=== PATIENT | male | born 1995 | race Caucasian/White ===

== ENCOUNTER 2024-10-02 09:06 | Emergency (ER) | payer OTHER, SELFPAY ==
--- NOTE | ~2024-10-02 | XR_ITS ---
Clinical Indication: Cough PA and lateral views of the chest: Comparison: None Findings: Possible nodular opacity peripheral right midlung, possibly calcified. Left lung clear. Car diomediastinal silhouette is within normal limits. Bones and soft tissues are unremarkable. Impression: Possible calcified right midlung nodule peripherally. Consider chest CT to further evaluate as indica jess. Reviewed, dictated and finalized at location . Impression: Possible calcified right midlung nodule peripherally. Consider chest CT to furt her evaluate as indicated.
--- OUTSIDE RECORDS SUMMARY | 2024-10-02 09:09 | XMS_ITS | Clinical Summary ---
Author Organization [facility] Address [address] [place] [address] Care Team Providers Care Underground Mining Section Foreman Name Role Phone Abilio Rosado MD Primary Care Provider [phone] Allergies No known active allergies Medications montelukast (SINGULAIR) 10 mg Oral tablet Take 1 Tab by mouth daily. 30 Tab 3 10/12/2012 Active Active Problems Patient Care Coordination No te Formatting of this note migh t be different from the original. Head Of Precision Targeting- Dr. Chrissie Camacho Office Problem Noted Date Diagnosed Date Adjustment reaction 10/12/2012 Encounters Date Type Department Care Team Description 09/09/2024 External Device Data ST[facility] ABSTRACTION Provider, Abstract 08/23/2024 External Device Data [facility] ABSTRACTION Provider, Abstract 08/02/2024 External Device Data [facility] ABSTRACTION Provider, Abstract 08/02/2024 External Device Data [facility] ABSTRACTION Provider, Abstract 08/02/2024 External Device Data [facility] ABSTRACTION Provider, Abstract 08/01/2024 1:25 PM CDT Ancillary Procedure [address] [place] [address] Ángel Jorgensen MD Left foot pain from Last 3 Months Family History Relation Name Status Comments Brother Alive Father Alive Mother Alive Social History Tobacco Use Types Packs/Day Years Used Date Smoking Tobacco: Never Smokeless Tobacco: Never Alcohol Use Standard Drinks/Week Comments No 0 (1 standard drink = 0.6 oz pur e alcohol) Sex and Gender Information Value Date Recorded Sex Assigned at Not on file Legal Sex Male 10:06 AM CDT Gender Identity Not on file Sexual Orientation Not on file Occupation Industry Job Start Date Job End Date Not on file Not on file Not on file Not on file Last Filed Vital Signs Vital Sign Reading Time Taken Comments Blood Pressure 112/76 11/22/2012 1:01 PM CDT Pulse 79 11/22/2012 1:01 PM CDT Temperature 36.7 C (98.1 F) 10/12/2012 1:28 PM CDT Respiratory Rate - - Oxygen Saturation 98% 11/22/2012 1:01 PM CDT Inhaled Oxygen Concentration - - Weight 80.8 kg (178 lb 1.6 oz) 11/22/2012 1:01 P M CDT Height 177.8 cm (5' 10) 11/22/2012 1:01 PM CDT Body Mass Index 25.55 11/22/2012 1:01 PM CDT Plan of Treatment Health Maintenance Due Date Last Done Comments HPV VACCINES (3 - Male 3-dos e series) 03/12/2013 11/09/2012, 09/09/2012 DTAP/TDAP/TD VACCINES (7 - T d or Tdap) 09/28/2016 09/28/2006, 07/31/1999, 06/15/1995, Additional history exists INFLUENZA VACCINE (#1) 2023 9, 01/13/2001, 02/01/1999 HEPATITIS B VACCINES Completed 1994, 1994, 1994 Procedures Procedure Name Priority Date/Time Associated Diagnosis Comments XR FOOT 3+ VW LEFT Routine 08/01/2024 1: 50 PM CDT Left foot pain from Last 3 Months Results * XR FOOT 3+ VW LEFT (08/01/2024 1:50 PM CDT) Anatomical Region Laterality Modality Ankle / Foot Computed Radiogr aphy 08/01/2024 1:51 PM CDT Impressions 08/01/2024 2:32 PM CDT IMPRESSION: Tiny somewhat buckled appearing defect along the lateral cortex of the mid shaft of the fifth proximal phalanx, age indeterminate. Please correlate with site of pain. This finding may very well be chronic. No additional osseous abnormalities. Narrative 08/01/2024 2:32 PM CDT Left foot HISTORY: Dropped a piece of workout equipment on his foot 3 views of the left foot demonstrate a tiny buckled appearance along the cortex laterally at the mid shaft of the fourth proximal phalanx, age indeterminate. Please correlate with site of pain. No additional osseous abnormalities are noted. Mineralization is normal. Procedure Note Shauna Noriega MD - 08/01/2024 Left foot HISTORY: Dropped a piece of workout equipment on his foot 3 views of the left foot demonstrate a tiny buckled appearance along the cortex laterally at the mid shaft of the fourth proximal phalanx, age indeterminate. Please correlate with site of pain. No additional osseous abnormalities are noted. Mineralization is normal. IMPRESSION: Tiny somewhat buckled appearing defect along the lateral cortex of the mid shaft of the fifth proximal phalanx, age indeterminate. Please correlate with site of pain. This finding may very well be chronic. No additional osseous abnormalities. us Ángel Jorgensen MD DIAGNOSTIC IMAGING ORDERABLES Fi nal Result from Last [address] [place] [address] [place] [address] BLUE ACCESS/TRUE BLUE PPO [facility] [employer] [place] [id number] Care Teams Underground Mining Section Foreman Relationship Specialty Start Date End Date Abilio Rosado MD PCP - General Internal Medicine 10/12/12
--- OUTSIDE RECORDS SUMMARY | 2024-10-02 09:14 | XMS_ITS | Encounter Summary ---
Author Organization [facility] Address [address] [place] [address] Phone Care Team Providers Care Money Market Clerk Name Role Phone Nacho Huerta MD Primary Care Provider + Encounter Details Date Type Department Care Team (Late st Contact Info) Description 05/16/2017 Orders Only [facility] ProviderKeshia MD [address] [place] [address] Social History Tobacco Use Types Packs/Day Years Used Date Smoking Tobacco: Never Smokeless Tobacco: Never Alcohol Use Standard Drinks/Week Comments Yes 0 (1 standard drink = 0.6 oz pur e alcohol) Sex and Gender Information Value Date Recorded Sex Assigned at Not on file Legal Sex Male 12:49 PM STAFF DEVELOPMENT EDUCATOR Gender Identity Not on file Sexual Orientation Not on file documented as of this encounter Plan of Treatment Not on file documented as of this encounter Procedures Procedure Name Priority Date/Time Associated Diagnosis Comments DISCHARGE LABORATORY CUMULATIVE REPORT 05/16/2017 12:00 AM STAFF DEVELOPMENT EDUCATOR documented in this encounter Results * DISCHARGE LABORATORY CUMULATIVE REPORT (05/16/2017 12:00 AM STAFF DEVELOPMENT EDUCATOR) Narrative 05/16/2017 12:00 AM STAFF DEVELOPMENT EDUCATOR Ordered by an unspecified provider. Historical Provider LAB BLOOD ORDERABLES Dominique l Result documented in this encounter Visit Diagnoses Not on filedocumented in this encounter Care Teams Money Market Clerk Relationship Specialty Start Date End Date Nacho Huerta MD [address] [address] PCP - General 04/22/16 documented as of this encounter
--- OUTSIDE RECORDS SUMMARY | 2024-10-02 09:14 | XMS_ITS | Clinical Summary ---
Author Organization [facility] [address] [place] [address] Care Team Providers Care Press Operator Helper Name Role Phone Nacho Huerta MD Primary Care Provider + Allergies No known active allergies Medications No known medications Active Problems Problem Noted Date Diagnosed Date Skin lesion 04/22/2016 Overview (07/25/2016): Skin lesion Follow-up status 04/22/2016 Overview (07/25/2016): Sex counselings Laryngismus 10/04/2012 Overview (07/23/2016): Spasm of vocal cords Medical examinations/reports status 06/24/2012 Overview (07/23/2016): Health care maintenance 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 (07/23/2016): 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 Overview (07/23/2016): Hyperhidrosis of axilla Irritable bowel syndrome 06/24/2012 Overview (07/25/2016): IBS (irritable bowel syndrome) Myopia 06/24/2012 Overview (07/25/2016): Myopia Immunizations Immunization Administration Dates Next Due DTP / HiB 06/15/1995 DTaP 07/31/1999 DTaP / HiB 1994,1994,1994 HPV, Quadrivalent 11/09/2012,09/09/2012 Hep B, Adolescent or Pediatric 1994,1994,1994 IPV 07/31/1999 Influenza, Trivalent, IM (MDV) 01/19/2009,2000,02/01/1999 MMR 07/31/1999,04/18/1995 Meningococcal Polysaccharide (Menomune) 11/16/19 11 OPV 1994,1994,1994 Tdap 09/28/2006 Varicella 04/18/1995 Surgical History Surgery Date Site/Laterality Comments OTHER SURGICAL HISTORY 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: Vag del SAH & nl head growth Medical History Medical History Date Comments Hx Other Medical 1993 6-7 microcephal y on US Hx Other Medical 1994 PET Family History Medical History Relation Name Comments Other Mother Strabismus; Other Other 1 1 Breast cancer Other 2 Family history of Cancer, breast; Other Other 3 1 Coronary artery disease Other 4 Fami ly history of Coronary artery disease; Other Other 5 1 Diabetes Other 6 Family history of Diabetes mellitus; Other Other 7 1 Other Other 8 No family histo ry of Sudden <50; Other Other 9 1 Relation Name Status Comments Mother Other 1 Other 2 Other 3 Other 4 Other 5 Other 6 Other 7 Other 8 Other 9 Social History Tobacco Use Types Packs/Day Years Used Date Smoking Tobacco: Never Smokeless Tobacco: Never Alcohol Use Standard Drinks/Week Comments Yes 0 (1 standard drink = 0.6 oz pur e alcohol) Sex and Gender Information Value Date Recorded Sex Assigned at Not on file Legal Sex Male 12:49 PM EMPLOYMENT ADJUDICATOR Gender Identity Not on file Sexual Orientation Not on file Obstetrics History Last Filed Vital Signs Vital Sign Reading Time Taken Comments Blood Pressure 122/84 05/16/2017 7:15 PM EMPLOYMENT ADJUDICATOR Pulse 87 05/16/2017 7:15 PM EMPLOYMENT ADJUDICATOR Temperature 36.9 C (98.5 F) 05/16/2017 7:15 PM EMPLOYMENT ADJUDICATOR Respiratory Rate 16 05/16/2017 7:15 PM EMPLOYMENT ADJUDICATOR Oxygen Saturation 98% 05/16/2017 7:15 PM EMPLOYMENT ADJUDICATOR Inhaled Oxygen Concentration - - Weight 89.8 kg (197 lb 14.4 oz) 05/16/2017 7:15 PM EMPLOYMENT ADJUDICATOR Height 180.3 cm (5' 11) 05/16/2017 7:15 PM EMPLOYMENT ADJUDICATOR Body Mass Index 27.6 05/16/2017 7:15 PM EMPLOYMENT ADJUDICATOR Plan of Treatment Not on file Insurance [employer] SIG [id number] [place] OPEN ACCESS [facility] CMR Care Teams Press Operator Helper Relationship Specialty Start Date End Date Nacho Huerta MD [address] [address] PCP - General 04/22/16
--- OUTSIDE RECORDS SUMMARY | 2024-10-02 09:14 | XMS_ITS | Referral Summary ---
Author Organization [facility] [address] Address [address] [place] [address] Care Team Providers Care Grid Trimmer Name Role Phone Nacho Huerta MD Primary [...] 11 OPV 1994,1994,1994 Tdap 09/28/2006 Varicella 04/18/1995 Social History Tobacco Use Types Packs/Day Years Used Date Smoking Tobacco: Never Smokeless Tobacco: Never Alcohol Use Standard Drinks/Week Comments Yes 0 (1 standard drink = 0.6 oz pur e alcohol) Sex and Gender Information Value Date Recorded Sex Assigned at Not on file Legal Sex Male 12:49 PM HARP ACTION ASSEMBLER Gender Identity Not on file Sexual Orientation Not on file Last Filed Vital Signs Vital Sign Reading Time Taken Comments Blood Pressure 122/84 05/16/2017 7:15 PM HARP ACTION ASSEMBLER Pulse 87 05/16/2017 7:15 PM HARP ACTION ASSEMBLER Temperature 36.9 C (98.5 F) 05/16/2017 7:15 PM HARP ACTION ASSEMBLER Respiratory Rate 16 05/16/2017 7:15 PM HARP ACTION ASSEMBLER Oxygen Saturation 98% 05/16/2017 7:15 PM HARP ACTION ASSEMBLER Inhaled Oxygen Concentration - - Weight 89.8 kg (197 lb 14.4 oz) 05/16/2017 7:15 PM HARP ACTION ASSEMBLER Height 180.3 cm (5' 11) 05/16/2017 7:15 PM HARP ACTION ASSEMBLER Body Mass Index 27.6 05/16/2017 7:15 PM HARP ACTION ASSEMBLER Plan of Treatment Not on file Insurance DR [facility] [address] [place] [id number] [employer] SIG [id number] [employer] OPEN ACCESS [facility] Care Teams Grid Trimmer Relationship Specialty Start Date End Date Nacho Huerta MD [address] [place] [address] PCP - General 04/22/16
[2024-10-02 09:16] VITALS: BP 146/92; PULSE 85; RESP 20; TEMP 37.1; O2SAT 98
--- NOTE | 2024-10-02 09:23 | ED.URI ---
HPI - URI/Sore Throat General Chief Complaint: Upper Respiratory Infection Stated Complaint: chocked on food yesterday, rash on body Source: patient Mode of arrival: ambulatory Limitations: no limitations History of Present Illness HPI Narrative: 29 y/o male presented for 2 complaints. First, pt reports a scattered red itchy rash spreading from arms and torso. Onset 5 days. Started applying fungal cream for ringworm 2 days ago, and says it might be helping some. Says rash started after spending time at a [employer]. Denies pain to the rash. Denies changes to soap, detergent, lotion, or any other exposures. No one else in the house or any contacts with similar symptoms. Pt also reports chest congestion and cough after choking on a cake pop yesterday. Says he did have difficulty catching his breath while choking, but was able to cough it up. Since then he was able to eat and drink without any difficulty. Endorses lingering throat discomfort but denies FB sensation. Denies lip, tongue, or throat swelling, shortness of breath or wheezing, f/c. Related Data Allergies Allergy/AdvReac Type Severity Reaction Status Date / Time No Known Allergies Allergy Unverified 11/05/14 14:34 Review of Systems Review of Systems: CONSTITUTIONAL: Denies body aches, fever, chills, or sweats. EYES: Denies visual changes, redness, or discharge. ENT: Denies rhinorrhea, congestion CARDIOVASCULAR: Denies chest pain, palpitations, or edema. RESPIRATORY: Denies dyspnea. GASTROINTESTINAL: Denies abdominal pain, nausea, vomiting, or diarrhea. SKIN: reports rash MUSCULOSKELETAL: Denies back pain, joint pain, or myalgia. NEUROLOGIC: Denies headache, numbness, tingling, or weakness. PMFSH Comments At time of signature, I have reviewed and agree with nursing past medical, surgical, social and family history unless otherwise noted. Please see nursing chart for further information. There is no relevant family history pertinent to the presenting complaint Exam Narrative: GENERAL: Well-appearing HEAD: Normocephalic, atraumatic. EYES: conjunctivae clear, and EOMI. ENT: Mucous membranes moist. Oropharynx without edema, erythema or lesions. NECK: Supple. No lymphadenopathy CHEST: Clear to auscultation. HEART: Regular rate and rhythm. SKIN: Warm, dry. Scattered erythematous round and oval shaped slightly raised lesions c/w tinea to BUEs and upper torso. Nontender, no drainage. NEURO: Alert and oriented x3. Course Course Emergency Course: Patient is aware of diagnosis, understands and agrees to treatment plan. Anticipatory guidance given. Patient agrees to follow-up as directed and is aware of reasons to seek care at the emergency department. Portions of this record may have been created with voice recognition software Level of Care: Express Care Visit Vital Signs Vital signs: Vital Signs Temperature 98.7 F 10/02/24 09:16 Pulse Rate 85 10/02/24 09:16 Respiratory Rate 20 10/02/24 09:16 Blood Pressure 146/92 H 10/02/24 09:16 Pulse Oximetry 98 10/02/24 09:16 Oxygen Delivery Room Air 10/02/24 09:16 Temperature 98.7 F 10/02/24 09:16 Pulse Rate 85 10/02/24 09:16 Respiratory Rate 20 10/02/24 09:16 Blood Pressure 146/92 H 10/02/24 09:16 Pulse Oximetry 98 10/02/24 09:16 Oxygen Delivery Room Air 10/02/24 09:16 Reviewed MDM - URI/Sore Throat MDM Narrative Medical decision making narrative: Discussed physical exam findings And chest x-ray. He will follow-up with his PCP regarding a possible calcified nodule and further management. will send antibiotic and fluconazole for treatment today. Advised supportive measures and signs/symptoms to go to the ER. Pt is appropriate for outpt treatment and f/u. Differential Diagnosis Differential diagnosis: Likely upper respiratory infection, sinusitis, viral infection, bronchitis and other (aspiration pneumonia, Viral exanthema, contact dermatitis, allergic dermatitis, eczema, urticaria, insect bites, impetigo, tinea, folliculitis) Imaging Data Radiologist's impression: Patient: Rajeev Guevara : 1995 MR#: [id number] Age: 29 Acct:[id number] Loc: [facility] ADM Date: 10/02/24Attending Dr: Clinical Indication: Cough PA and lateral views of the chest: Comparison: None Findings: Possible nodular opacity peripheral right midlung, possibly calcified. Left lung clear. Cardiomediastinal silhouette is within normal limits. Bones and soft tissues are unremarkable. Impression: Possible calcified right midlung nodule peripherally. Consider chest CT to further evaluate as indicated. Discharge Plan Discharge Clinical Impression: Bronchitis, Tinea corporis, Abnormal chest x-ray Patient Disposition: Home Condition: Stable Instructions: Antibiotic Form, Tinea Corporis (ED), Aspiration Pneumonia (DC) Additional Instructions: Ringworm is a contagious fungal infection caused by common mold-like parasites that live on the cells in the outer layer of your skin. It can be spread by Human to human by direct, [id number] contact with an infected person. You are considered contagious as long as the skin fungus appears on your skin. Keep the areas covered. Take medication as directed weekly until resolution Take the antibiotic as directed Watch for worsening symptoms such as shortness of breath, wheezing, cough, fever, fatigue. Follow up with your primary care provider in 3 days regarding results of chest xray. Go to the ER for worsening symptoms or concerns Patient Language: Sinhala Prescriptions: New fluconazole 200 mg tablet 200 mg PO WEEKLY 28 Days Qty: 4 0RF amoxicillin-pot clavulanate 875-125 mg tablet 1 tablet PO Q12H 7 Days Qty: 14 0RF Follow-up/Referrals: Bradley,Domingo Tipton MD [Primary Care Provider] -
== END 2024-10-02 10:01 | disposition home or self-care (01) ==
PROVIDERS: Emergency Provider Nurse Practitioner Family; PCP Internal Medicine
DX: J40 Bronchitis, not specified as acute or chronic (principal); B35.4 Tinea corporis; R91.8 Other nonspecific abnormal finding of lung field
CPT/HCPCS: 71046; 99203; G0463